=== PATIENT | male | born 1955 | race Caucasian/White ===

== ENCOUNTER 2018-02-21 05:29 | Day surgery (SDC) | payer MEDICARE, BC ==
[~2018-02-21] VITALS: Ht 185.4 cm; Wt 100.2 kg
--- NOTE | ~2018-02-21 | OP ---
PATIENT NAME: KAYLEEN COHEN MEDICAL RECORD: [id number] [facility] DATE: SURGEON: XIN COTE MD DATE OF OPERATION: 02/21/2018 SURGEON: Xin Cote MD PREOPERATIVE DIAGNOSIS: Hemorrhoids. POSTOPERATIVE DIAGNOSES: 1. Thrombosed internal hemorrhoids. 2. Thrombosed external hemorrhoids. PROCEDURES PERFORMED: 1. Rectal examination under anesthesia. 2. Internal hemorrhoid banding. 3. External hemorrhoidectomy. ANESTHESIA: General. COMPLICATIONS: None. SPECIMENS: External hemorrhoid. Case was contaminated. OPERATIVE COURSE: After consent was obtained, the patient was taken to the operating room and placed in supine position on the operating table. Next, general anesthesia was given via endotracheal intubation after a timeout was performed to confirm the correct patient and procedure. The perineum was prepped and draped in typical sterile fashion. A 30 cc of local anesthetic were injected for a perineal block. Digital rectal exam was performed. There was a large thrombosed external hemorrhoid in the left lateral position. The rectum was sterilely dilated using the [place] retractors. Internal hemorrhoids were noted in all 3 hemorrhoid columns. Internal hemorrhoid banding was performed on all 3 internal hemorrhoid columns. Using the Harmonic scalpel, the external hemorrhoid was excised and sent for pathology. The skin was closed at the external hemorrhoid site using 2-0 chromic suture. The rectum was then packed with Gelfoam and Americaine. At the end of the case, all needle and instrument counts were correct. No complications occurred. The patient was extubated and transferred to the PACU in stable condition. TRANSINT:[id number] Voice Confirmation ID: [id number] DOCUMENT ID: [id number] XIN COTE MD at 1535 CC: [id number] DICTATION DATE: 02/21/18 0838 BUTTER LIQUEFIER: 02/21/18 1224 [facility] 02/21/[address] [id number]
[2018-02-21 06:37] LABS: HEMATOCRIT 37.8 % (42.0-54.0); HEMOGLOBIN 12.6 g/dL (13.5-17.5); MCH 27.5 pg (26.0-34.0); MCHC 33.3 g/dL (31.0-37.0); MCV 82.4 fL (80.0-100.0); MEAN PLATELET VOLUME 9.3 fL (7.4-10.4); PLATELET COUNT 95 10x3/uL (130-400); RBC 4.59 10x6/uL (4.20-6.10); WBC 7.7 10x3/uL (4.8-10.8)
[2018-02-21] MEDS ORDERED: AUGMENTIN 875-11 TAB PO (06:40)
[2018-02-21] MEDS ORDERED: KLONOPIN1 MG PO (06:41)
[2018-02-21] MEDS ORDERED: FLOMAX0.4 MG PO (06:42)
[2018-02-21] MEDS ORDERED: LIPITOR40 MG PO (06:42)
[2018-02-21] MEDS ORDERED: NORVASC5 MG PO (06:42)
[2018-02-21] MEDS ORDERED: OMEPRAZOLE40 MG PO (06:43)
[2018-02-21] MEDS ORDERED: RISPERDAL0.5 MG PO (06:43)
[2018-02-21] MEDS ORDERED: METFORMIN HCL500 M1 PO (06:44)
[2018-02-21] MEDS ORDERED: SEROQUEL50 MG PO (06:45)
[2018-02-21] MEDS ORDERED: PROSCAR5 MG PO (06:46)
[2018-02-21] MEDS ORDERED: ZOLOFT100 MG PO (06:46)
[2018-02-21 06:47] VITALS: BP 125/64; Ht 185.4 cm; Wt 100.2 kg
[2018-02-21 07:01] LABS: CALC OSMOLALITY 288 mosm/kg (275-300); CALCIUM 8.7 mg/dL (8.5-10.1); CARBON DIOXIDE 26.4 mmol/L (21.0-32.0); CHLORIDE - SERUM 106 mmol/L (98-107); GLUCOSE 145 mg/dL (74-106); POTASSIUM - SERUM 3.6 mmol/L (3.5-5.1); SODIUM 142 mmol/L (136-145); UREA NITROGEN 21 mg/dL (7-18); eGFR NON AFRICAN AMERICAN 81 mL/min (90-120)
[2018-02-21] MEDS ORDERED: HYDROCODON-ACE1 EAC7 PO (08:33)
[2018-02-21] MEDS ORDERED: VALIUM5 MG PO (08:33)
[2018-02-21] MEDS ORDERED: MIRALAX17 GM PO (08:33)
[2018-02-21 08:38] LABS: PLATELET ESTIMATE DECREASED
== END 2018-02-21 11:30 | disposition home or self-care (01) ==
LOC: D.OPS 05:29 → D.PAN 08:00 → D.OPS 08:00
PROVIDERS: Anesthesiology
DX: K64.5 Perianal venous thrombosis (principal); K64.8 Other hemorrhoids; I10 Essential (primary) hypertension; E11.9 Type 2 diabetes mellitus without complications; K21.9 Gastro-esophageal reflux disease without esophagitis; G47.30 Sleep apnea, unspecified; Z01.812 Encounter for preprocedural laboratory examination

== ENCOUNTER 2018-02-25 10:50 | Emergency (ER) | payer MEDICARE, BC ==
[2018-02-21 06:47] VITALS: BMI 29.2
[~2018-02-25 10:50] MED LIST: AUGMENTIN 875-11 TAB PO; FLOMAX0.4 MG PO; HYDROCODON-ACE1 EAC7 PO; KLONOPIN1 MG PO; LIPITOR40 MG PO; METFORMIN HCL500 M1 PO; MIRALAX17 GM PO; NORVASC5 MG PO; OMEPRAZOLE40 MG PO; PROSCAR5 MG PO; RISPERDAL0.5 MG PO; SEROQUEL50 MG PO; VALIUM5 MG PO; ZOLOFT100 MG PO
[2018-02-25 11:40] LABS: BASOPHILS 0.2 % (0-2); EOSINOPHILS 6.3 % (0-7); HEMATOCRIT 35.9 % (42.0-54.0); HEMOGLOBIN 12.1 g/dL (13.5-17.5); IMMATURE GRANULOCYTES 0.2 % (0-5); MCH 28.1 pg (26.0-34.0); MCHC 33.7 g/dL (31.0-37.0); MCV 83.5 fL (80.0-100.0); MEAN PLATELET VOLUME 8.4 fL (7.4-10.4); MONOCYTES 7.6 % (2-11); NEUTROPHILS 72.7 % (40-80); PLATELET COUNT 84 10x3/uL (130-400); RDW 14.3 % (11.5-14.5)
[2018-02-25 11:48] LABS: APPEARANCE HAZY (CLEAR); COLOR YELLOW (YELLOW); SPECIFIC GRAVITY 1.015 (1.005-1.020)
[2018-02-25 11:49] LABS: BILIRUBIN NEGATIVE (NEGATIVE); GLUCOSE 250 mg/dL (NEGATIVE); KETONE NEGATIVE (NEGATIVE); NITRITE NEGATIVE (NEGATIVE); PROTEIN NEGATIVE (NEGATIVE); UROBILINOGEN NORMAL (NORMAL)
[2018-02-25 11:51] LABS: BACTERIA FEW /hpf (NONE SEEN); EPITHELIAL CELLS OCC /hpf (0-5); RED CELLS - URINE 0-5 /hpf (0-5); WHITE CELLS - URINE 0-5 /hpf (0-5)
[2018-02-25 11:59] LABS: ALBUMIN 3.4 g/dL (3.4-5.0); ANION GAP 13.5 mmol/L (8-16); BILIRUBIN - TOTAL 0.74 mg/dL (0.2-1.3); CALCIUM 8.8 mg/dL (8.5-10.1); CREATININE - SERUM 1.2 mg/dL (0.6-1.3); POTASSIUM - SERUM 3.5 mmol/L (3.5-5.1); PROTEIN - SERUM 6.9 g/dL (6.4-8.2)
== END 2018-02-25 13:35 | disposition home or self-care (01) ==
LOC: D.ER 10:50
PROVIDERS: Family Medicine; Nurse Practitioner Family
DX: R33.9 Retention of urine, unspecified (principal); E11.9 Type 2 diabetes mellitus without complications; I10 Essential (primary) hypertension

== ENCOUNTER 2018-03-05 13:49 | Emergency (ER) | payer MEDICARE, BC ==
[2018-02-21 06:47] VITALS: BMI 29.2
[2018-03-05 17:49] LABS: APPEARANCE CLEAR (CLEAR); BILIRUBIN NEGATIVE (NEGATIVE); COLOR YELLOW (YELLOW); GLUCOSE 50 mg/dL (NEGATIVE); KETONE NEGATIVE (NEGATIVE); NITRITE NEGATIVE (NEGATIVE); PROTEIN TRACE mg/dL (NEGATIVE); UROBILINOGEN NORMAL (NORMAL)
[2018-03-05 17:51] LABS: BACTERIA MODERATE /hpf (NONE SEEN); RED CELLS - URINE 0-5 /hpf (0-5); WHITE CELLS - URINE 0-5 /hpf (0-5)
== END 2018-03-05 18:24 | disposition home or self-care (01) ==
LOC: D.ER 13:49
PROVIDERS: Physician Assistant Medical
DX: E11.65 Type 2 diabetes mellitus with hyperglycemia (principal); N39.0 Urinary tract infection, site not specified; I10 Essential (primary) hypertension

== ENCOUNTER → 2019-04-04 16:32 | Outpatient (CLI) | payer MEDICARE, BC ==
[2018-02-21 06:47] VITALS: BMI 29.2
[2019-04-08 15:11] LABS: IGG SUBCLASS 1 485 mg/dL (248-810); IGG SUBCLASS 2 266 mg/dL (130-555); IGG SUBCLASS 3 31 mg/dL (15-102); IGG SUBCLASS 4 22 mg/dL (2-96)
== END | disposition home or self-care (01) ==
LOC: D.LABREF 16:32
PROVIDERS: ATTEND Internal Medicine Pulmonary Disease
DX: J42 Unspecified chronic bronchitis (principal)

== ENCOUNTER → 2019-04-23 14:03 | Outpatient (CLI) | payer MEDICARE, BC ==
[2018-02-21 06:47] VITALS: BMI 29.2
[2019-04-24 10:13] LABS: IMMUNOGLOBULIN A 83 mg/dL (61-437); IMMUNOGLOBULIN G 810 mg/dL (700-1600); IMMUNOGLOBULIN M 56 mg/dL (20-172)
[2019-04-24 21:08] LABS: IGG SUBCLASS 1 474 mg/dL (248-810); IGG SUBCLASS 2 261 mg/dL (130-555); IGG SUBCLASS 3 28 mg/dL (15-102); IGG SUBCLASS 4 21 mg/dL (2-96)
[2019-04-26 05:09] LABS: IMMUNOGLOBULIN E 81 IU/mL (6-495)
== END | disposition home or self-care (01) ==
LOC: D.RAD 14:03 → D.RT 16:00
PROVIDERS: ATTEND Internal Medicine Pulmonary Disease
DX: J42 Unspecified chronic bronchitis (principal); R06.00 Dyspnea, unspecified; J44.9 Chronic obstructive pulmonary disease, unspecified

== ENCOUNTER → 2020-06-19 13:35 | Outpatient (CLI) | payer MEDICARE, BC ==
[2018-02-21 06:47] VITALS: BMI 29.2
== END | disposition home or self-care (01) ==
LOC: D.LAB 13:35
PROVIDERS: ATTEND Internal Medicine Pulmonary Disease
DX: J44.9 Chronic obstructive pulmonary disease, unspecified (principal)

== ENCOUNTER → 2020-06-23 16:05 | Outpatient (CLI) | payer MEDICARE, BC ==
[2018-02-21 06:47] VITALS: BMI 29.2
== END | disposition home or self-care (01) ==
LOC: D.RAD 14:30 → D.RT 16:00 → D.RAD 16:05
PROVIDERS: ATTEND Internal Medicine Pulmonary Disease
DX: J44.9 Chronic obstructive pulmonary disease, unspecified (principal)